=== PATIENT | female | born 1990 | race Caucasian/White ===

== ENCOUNTER 2017-11-11 20:40 | Emergency (ER) | payer MEDICAID ==
[~2017-11-11] VITALS: Ht 147.3 cm; Wt 60.3 kg
[2017-11-11 21:00] VITALS: Ht 147.3 cm; Wt 60.3 kg
[2017-11-12 03:48] VITALS: BP 118/67
== END 2017-11-12 03:20 | disposition home or self-care (01) ==
LOC: ED 20:40
DX: B34.9 Viral infection, unspecified (principal); K76.0 Fatty (change of) liver, not elsewhere classified
CPT/HCPCS: 87804; Q0162

== ENCOUNTER 2019-03-12 18:01 | Emergency (ER) | payer MEDICAID | END 2019-03-12 23:39 | disposition home or self-care (01) | LOC: ED 18:01 ==